=== PATIENT | female | born 1985 | race African-American/Black ===

== ENCOUNTER 2018-07-08 01:49 | Emergency (ER) | payer MEDICAID | END 2018-07-08 02:50 | disposition left against medical advice (07) | LOC: ER 02:50 | DX: Z53.21 Procedure and treatment not carried out due to patient leaving prior to being seen by health care provider (principal) ==

== ENCOUNTER 2018-07-08 05:01 | Emergency (ER) | payer MEDICAID ==
[~2018-07-08] VITALS: Ht 177.8 cm; Wt 80.0 kg
[2018-07-08] MEDS ORDERED: ACETAMINOPHEN 500MG TABLET PO NR (07:45)
[2018-07-08 08:37] VITALS: BP 108/72
== END 2018-07-08 08:54 | disposition home or self-care (01) ==
LOC: ER 06:13
DX: S60.222A Contusion of left hand, initial encounter (principal); J06.9 Acute upper respiratory infection, unspecified; J45.909 Unspecified asthma, uncomplicated; R56.9 Unspecified convulsions; F17.200 Nicotine dependence, unspecified, uncomplicated; Z76.0 Encounter for issue of repeat prescription; Y08.89XA Assault by other specified means, initial encounter; Y93.89 Activity, other specified
CPT/HCPCS: 99283; Z7610

== ENCOUNTER 2019-06-21 12:53 | Emergency (ER) | payer MEDICAID, MEDICARE ==
[~2019-06-21] VITALS: Ht 177.8 cm; Wt 73.0 kg
[2019-06-21] MEDS ORDERED: ALBUTEROL (0.083%) 2.5MG/3ML NEB HHN STA (13:24)
[2019-06-21] MEDS ORDERED: IPRATROPIUM BROMIDE (0.02%) 0.5MG/2.5ML NEB HHN STA (13:24)
[2019-06-21] MEDS ORDERED: AZITHROMYCIN 500 MG TABLET PO ONE (13:30)
[2019-06-21] MEDS ORDERED: CEFTRIAXONE SODIUM 250 MG/VIAL IM ONE (13:30)
[2019-06-21] MEDS ORDERED: LIDOCAINE HCL/PF 1% 10 MG/ML 5ML VIAL IJ ONE (13:45)
[2019-06-21 15:03] LABS: CLARITY URINE CLEAR (CLEAR); COLOR URINE YELLOW (YELLOW); KETONES URINE NEGATIVE (NEGATIVE); LEUKOCYTE ESTERASE URINE NEGATIVE (NEGATIVE); NITRITE URINE NEGATIVE (NEGATIVE); OCCULT BLOOD URINE NEGATIVE (NEGATIVE); PROTEIN URINE NEGATIVE (NEGATIVE); SPECIFIC GRAVITY URINE 1.002 (1.005-1.030); UROBILINOGEN URINE 0.2 E.U./dL (0.2-1.0)
[2019-06-21 16:13] VITALS: BP 100/60
== END 2019-06-21 16:16 | disposition home or self-care (01) ==
LOC: ER 12:53
DX: A64 Unspecified sexually transmitted disease (principal); J45.909 Unspecified asthma, uncomplicated
CPT/HCPCS: 71045; 81003; 81025; 94640; 96372; 99284; J0696; J3490; J7611

== ENCOUNTER 2021-01-31 00:24 | Emergency (ER) | payer MEDICAID, MEDICARE ==
[~2021-01-31] VITALS: Ht 177.8 cm; Wt 74.0 kg
[2021-01-31 00:45] VITALS: BP 130/76
[2021-01-31 02:33] LABS: CLARITY URINE CLEAR (CLEAR); COLOR URINE YELLOW (YELLOW); KETONES URINE TRACE (NEGATIVE); LEUKOCYTE ESTERASE URINE NEGATIVE (NEGATIVE); NITRITE URINE NEGATIVE (NEGATIVE); OCCULT BLOOD URINE NEGATIVE (NEGATIVE); PH URINE 5.5 (4.5-8.0); PROTEIN URINE NEGATIVE (NEGATIVE); SPECIFIC GRAVITY URINE 1.022 (1.005-1.030)
[2021-01-31] MEDS ORDERED: DOXY100T2 MT (02:55)
[2021-01-31] MEDS ORDERED: PENICILLIN G BENZATHINE 2,400,000 UNITS/4ML SYR IM ONE (03:00)
[2021-01-31] MEDS ORDERED: CEFTRIAXONE SODIUM 500 MG/VIAL IM ONE (03:00)
[2021-02-02 15:11] LABS: NEISSERIA GONORRHOEAE NAA Negative (Negative)
== END 2021-01-31 04:15 | disposition home or self-care (01) ==
LOC: ER 00:24
DX: A64 Unspecified sexually transmitted disease (principal); J45.909 Unspecified asthma, uncomplicated; R56.9 Unspecified convulsions; F17.200 Nicotine dependence, unspecified, uncomplicated
CPT/HCPCS: 81003; 81025; 86592; 87491; 87591; 96372; 99284; J0561; J0696

== ENCOUNTER 2021-03-01 14:52 | Emergency (ER) | payer MEDICAID ==
[~2021-03-01] VITALS: Ht 177.8 cm; Wt 73.0 kg
[~2021-03-01 14:52] MED LIST: DOXY100T2 MT
[2021-03-01] MEDS ORDERED: PENICILLIN G BENZATHINE 2,400,000 UNITS/4ML SYR IM ONE (16:15)
[2021-03-01] MEDS ORDERED: CEFTRIAXONE SODIUM 500 MG/VIAL IM ONE (17:00)
[2021-03-01] MEDS ORDERED: LIDOCAINE HCL 1% 20ML VIAL (Pyxis) INJ INFIL ONE (17:15)
[2021-03-01] MEDS ORDERED: DOXY100T2 MT (17:35)
[2021-03-01 17:46] VITALS: BP 122/80
== END 2021-03-01 17:47 | disposition home or self-care (01) ==
LOC: ER 14:52
DX: A64 Unspecified sexually transmitted disease (principal); J45.909 Unspecified asthma, uncomplicated
CPT/HCPCS: 81025; 87491; 87591; 96372; 99284; J0561; J0696; J3490

== ENCOUNTER 2021-09-16 23:40 | Emergency (ER) | payer MEDICAID ==
[~2021-09-16] VITALS: Ht 177.8 cm; Wt 82.8 kg
[2021-09-16 23:49] VITALS: BP 116/71
[2021-09-17] MEDS ORDERED: PENICILLIN G PROCAINE 600000 UNITS/ML SYRINGE IM ONE (00:45)
[2021-09-17] MEDS ORDERED: CEFTRIAXONE SODIUM 500 MG/VIAL IM ONE (00:45)
[2021-09-17 01:04] LABS: CLARITY URINE CLEAR (CLEAR); COLOR URINE YELLOW (YELLOW); KETONES URINE TRACE (NEGATIVE); LEUKOCYTE ESTERASE URINE NEGATIVE (NEGATIVE); NITRITE URINE NEGATIVE (NEGATIVE); OCCULT BLOOD URINE NEGATIVE (NEGATIVE); PH URINE 6.5 (4.5-8.0); PROTEIN URINE NEGATIVE (NEGATIVE); SPECIFIC GRAVITY URINE 1.026 (1.005-1.030)
[2021-09-17 01:14] LABS: UCG SCREEN POSITIVE
[2021-09-17] MEDS ORDERED: PENICILLIN G BENZATHINE 2,400,000 UNITS/4ML SYR IM SCH (01:15)
[2021-09-17] MEDS: AZITHROMYCIN 500 MG TABLET PO ONE ×2 (01:21→01:29)
[2021-09-17] MEDS: METRONIDAZOLE 500MG TABLET PO ONE ×2 (01:22→01:29)
== END 2021-09-17 01:27 | disposition home or self-care (01) ==
LOC: ER 23:40
DX: O26.891 Other specified pregnancy related conditions, first trimester (principal); Z3A.01 Less than 8 weeks gestation of pregnancy; O99.511 Diseases of the respiratory system complicating pregnancy, first trimester
CPT/HCPCS: 81003; 81025; 96372; 99284; J0561; J0696; J2510

== ENCOUNTER 2024-12-06 00:12 | Emergency (ER) | payer MEDICAID ==
[~2024-12-06] VITALS: Ht 177.8 cm; Wt 83.3 kg
[2024-12-06 00:30] VITALS: BP 127/91; PULSE 98; RESP 16; TEMP 98.5; O2SAT 100
[2024-12-06 01:21] LABS: CLARITY URINE CLOUDY (CLEAR); COLOR URINE YELLOW (YELLOW); GLUCOSE URINE NEGATIVE (NEGATIVE); KETONES URINE NEGATIVE (NEGATIVE); LEUKOCYTE ESTERASE URINE 1+ (NEGATIVE); NITRITE URINE NEGATIVE (NEGATIVE); OCCULT BLOOD URINE TRACE (NEGATIVE); PH URINE 5.5 (4.5-8.0); PROTEIN URINE TRACE (NEGATIVE); SPECIFIC GRAVITY URINE 1.034 (1.005-1.030)
[2024-12-06 01:38] LABS: UCG SCREEN NEGATIVE
[2024-12-06 02:22] LABS: CHLORIDE 105 mEq/L (98-107); SODIUM 138 mEq/L (136-145)
[2024-12-06 02:23] LABS: CARBON DIOXIDE 26 mEq/L (21-32)
[2024-12-06 02:24] LABS: CALCIUM 9.8 mg/dL (8.7-10.4)
[2024-12-06 02:29] LABS: GLUCOSE 87 mg/dL (70-105); UREA NITROGEN BLOOD 19 mg/dL (9-23)
[2024-12-06 02:32] LABS: TROPONIN I HIGH SENSITIVITY < 4 ng/L (3.0-34)
[2024-12-06 02:44] LABS: BASOPHILS % 0.2 % (0.0-2.0); EOSINOPHILS % 0.3 % (0.0-5.0); HEMOGLOBIN. 13.3 g/dL (12.0-16.0); MEAN CORPUSCULAR HEMOGLOBIN 30.7 pg (28.0-32.0); MEAN CORPUSCULAR HGB CONC 33.2 g/dL (31.0-37.0); MEAN CORPUSCULAR VOLUME 92.4 fL (81.0-99.0); MEAN PLATELET VOLUME 7.9 fl (7.4-10.4); MONOCYTES % 13.2 % (2.0-8.0); NEUTROPHILS % 44.3 % (40.0-76.0); PLATELET 314 x1000/uL (130-400); RED BLOOD CELL COUNT 4.33 mill/uL (4.2-5.4); RED CELL DISTRIBUTION WIDTH 13.3 % (11.6-14.6); WHITE BLOOD COUNT 6.4 x1000/uL (4.5-11.0)
[2024-12-06] MEDS: LIDOCAINE HCL 1% 20ML VIAL INFIL ONE (02:52)
[2024-12-06] MEDS: PENICILLIN G BENZATHINE 2,400,000 UNITS/4ML SYR IM ONE (02:52)
[2024-12-06] MEDS: CEFTRIAXONE SODIUM 500MG VIAL IM ONE (02:52)
[2024-12-06] MEDS ORDERED: DOXY100C5 MT (02:56)
[2024-12-06 04:57] LABS: SQUAMOUS EPITHELIAL CELL URINE 1+ /lpf (RARE/1+)
[2024-12-06 04:58] LABS: RBC URINE 0-2 /hpf (0-2)
[2024-12-06 05:01] LABS: BACTERIA URINE 1+
== END 2024-12-06 03:51 | disposition home or self-care (01) ==
LOC: ER 00:12
DX: A64 Unspecified sexually transmitted disease (principal); J45.909 Unspecified asthma, uncomplicated; R07.9 Chest pain, unspecified
CPT/HCPCS: 99285; 71045; 86592; 80048; 81003; 81025; 85025; 87086; 84484; 36415; 93005; 96372; J0561; J0696; J3490